=== PATIENT | female | born 2000 | race Caucasian/White ===

== ENCOUNTER 2021-10-03 21:19 | Emergency (ER) | payer MEDICAID ==
[~2021-10-03] VITALS: Ht 165.1 cm; Wt 59.0 kg
[2021-10-03 21:44] VITALS: BP 107/61
--- NOTE | 2021-10-03 21:46 | NUR ---
Patient discharged to home in stable condition. Written and verbal after care instructions given. Patient verbalizes understanding of instruction. Pt ambulatory with a steady gait
== END 2021-10-03 21:50 | disposition home or self-care (01) ==
LOC: ER 21:19
DX: U07.1 COVID-19 (principal)

== ENCOUNTER 2021-11-30 22:44 | Emergency (ER) | payer MEDICAID ==
[~2021-11-30] VITALS: Ht 165.1 cm; Wt 63.5 kg
[2021-12-01] VITALS: BP 130/77
--- NOTE | 2021-12-01 | NUR ---
PATIENT BIBSELF C/O VAGINAL BLEEDING X 2 WEEKS, RLQ ABDOMINAL PAIN X 1 MONTH DENIES ANY PAIN URINATING, LMP 2 MONTHS AGO. PT IS A/O X 4, RR EVEN AND UNLABORED NO SOB NOTED. PT TO ER BED 16. NO ACUTE DISTRESS NOTED.
--- NOTE | 2021-12-01 00:37 | NUR ---
URINE COLLECTED SENT TO LAB
--- NOTE | 2021-12-01 00:47 | NUR ---
PRE OWNED [employer] AT BEDSIDE
--- NOTE | 2021-12-01 00:51 | NUR ---
PT REFUSED BLOODWORK, MADE AWARE
--- NOTE | 2021-12-01 00:54 | NUR ---
Patient does not wish to proceed with medical care recommended by Dr. Larson. Patient given information related to possible complications, up to and including , which could occur as a result of leaving the hospital at this time. Patient verbalizes understanding of risks involved due to leaving against medical advice. Patient has signed AMA form.
[2021-12-01 01:23] LABS: BILIRUBIN,URINE NEGATIVE (NEGATIVE); COLOR,URINE YELLOW (YELLOW); LEUKOCYTE ESTERASE ,URINE NEGATIVE (NEGATIVE); NITRITE, URINE NEGATIVE (NEGATIVE); PROTEIN,URINE NEGATIVE (NEGATIVE); UGLUCOSE NEGATIVE (NEGATIVE); UROBILINOGEN,URINE 0.2 EU/dL (0.2)
[2021-12-01 01:33] LABS: BACTERIA,URINE Rare /HPF (None Seen); SQUAMOUS EPITHELIAL CELL,UR Few /HPF (None Seen); WBC,URINE 0-2 /HPF (0-3)
== END 2021-12-01 01:11 | disposition left against medical advice (07) ==
LOC: ER 23:15
DX: N93.9 Abnormal uterine and vaginal bleeding, unspecified (principal)
CPT/HCPCS: 81001; 84703-TC